=== PATIENT | male | born 1960 | race Two or more races ===

== ENCOUNTER 2022-01-17 05:47 | Day surgery (SDC) | payer OTHER ==
[~2022-01-17 05:47] MED LIST: COZAAR50 MG PO; CRESTOR20 MG PO; RESTORIL15 MG PO
[2022-01-17] MEDS ORDERED: MIRALAX17 GM PO (07:23)
[2022-01-17] MEDS ORDERED: KETO10TA2 PO (07:23)
[2022-01-17] MEDS ORDERED: TYLENOL ARTHRI650 MG PO (07:23)
[2022-01-17] MEDS ORDERED: ULTRAM50 MG PO (07:23)
== END 2022-01-17 13:00 | disposition home or self-care (01) ==
LOC: CIR.AMB 05:47
PROVIDERS: ATTEND Surgery
DX: K40.91 Unilateral inguinal hernia, without obstruction or gangrene, recurrent (principal); K42.9 Umbilical hernia without obstruction or gangrene; Z20.822 Contact with and (suspected) exposure to COVID-19; I10 Essential (primary) hypertension
CPT/HCPCS: 49651; 49652; C1781